=== PATIENT | male | born 1985 | race African-American/Black ===

== ENCOUNTER 2016-09-18 06:41 | Emergency (ER) | payer OTHER ==
--- NOTE | ~2016-09-18 | CR126 ---
[facility] A Service of [facility] & [facility] RADIOLOGY TEXT RESULTS PATIENT: ALANNAH REYEZ LOCATION: [facility] : [birth year] UNIT #: [id number] AGE: [address]: Mahendra Austin MD SEX: M ORDER DR: [id number] [facility] [address] [place], [place] [address] [id number] E MR#: [id number] Acc #: [id number] NAME: ALANNAH REYEZ : 1985 SEX: M STUDY DATE/TIME: 09/18/2016 6:49 UNIT: [facility] ROOM: STUDY DESCRIPTION: CR Foot Complete Min 3 View Lt Attending Physician: Er Doctor [facility] Ordering Physician: Mahendra Austin M.D. Primary Care Physician: Primary Care Physician No MEDICAL IMAGING REPORT This report is preliminary unless electronic signature is present EXAM Left foot 09/18/2016 INDICATION Generalized soft tissue swelling with foot pain that started this morning. No known trauma. FINDINGS The tarsal, metatarsal, and phalangeal elements are all anatomically normal in position and alignment. There are no articular defects. No fractures or radiopaque foreign bodies in the soft tissues are apparent. IMPRESSION Normal foot. Dictated by... Gregg Lambert Jr., M.D. THIS IS AN ELECTRONICALLY VERIFIED REPORT Gregg Lambert Jr., M.D. at 09/18/2016 3:50 PM ALEX/barbara TD: 09/18/2016 09:20 JOB #: [id number] MEDICAL IMAGING REPORT COPY
== END 2016-09-18 07:41 | disposition home or self-care (01) ==
LOC: CED 06:41
DX: L25.9 Unspecified contact dermatitis, unspecified cause (principal); I10 Essential (primary) hypertension; F17.200 Nicotine dependence, unspecified, uncomplicated; Z88.0 Allergy status to penicillin
CPT/HCPCS: 73630; 99283